=== PATIENT | female | born 1985 | race Caucasian/White ===

== ENCOUNTER → 2019-02-14 | Outpatient (CLI) | payer BC ==
--- NOTE | 2019-02-14 15:18 | CARD ---
MR#: [id number] Date of Study: 02/14/2019 Ordering Physician: EMILY DOUGLAS, Referring Physician: EMILY DOUGLAS, Tech: Barbara Hammond RDCS APPROVED REPORT INDICATION Chest Pain Reason : Patient complained of shortness of breath PROCEDURE The patient underwent an Exercise Stress Test using the Dick Protocol. Blood pressure, heart rate, a nd EKG were monitored. An Echocardiogram was performed by exhaust emissions automotive technician in four stages in quad fashion. At peak stress four se lected images were obtained and placed side by side with resting images for comparison. STRESS ECHO FINDINGS The resting Echocardiogram showed normal left ventricular systolic contractility with an estimated Ej ection Fraction of about 60 %. The Resting Echocardiogram showed normal augmentation of myocardial wall segments using a 16 segment model. The Stress Echocardiogram showed normal augmentation of myocardial wall segments using a 16 segment m eliud. The Stress Echocardiogram left ventricular systolic contractility has an estimated Ejection Fraction of about 70%. Test Type: Exercise Stress Nurse/Tech: Tone EUBANKS Test Indications: CP Cardiac History and Allergies: See EMR Medications: See EMR Medical History: See EMR Resting ECG: SR Resting Heart Rate: 61 bpm Resting Blood Pressure: 142/76mmHg Pretest Chest Pain: No chest pain Nurse/Tech Notes Lungs CTA. Heart tones regular. Consent: The procedure was explained to the patient in lay terms. Informed consent was witnessed. Donis eout was entered into [employer]. History and Stress Test performed by Yamel Douglass R.N. Stress Symptoms No chest pain or symptoms. POST EXERCISE Reason for Termination: Reached target heart rate Target HR: Yes Max HR: 178 bpm 96% of Maximum Predicted HR: 186 bpm Exercise duration: 9:00 min:sec, 3 Stage Exercise capacity: 10.1METs Max Blood Pressure: 164/80mmHg Blood Pressure response to exercise: Normal blood pressure response during stress. Heart Rate response to exercise: WNL Chest Pain: No. Arrhythmia: No. ST Change: No. STRESS ECG Stress EKG shows no significant changes. Preliminary Notification Critical Value: No <Conclusion> Good exercise capacity with 10.1 Mets achieved. Normal BP/HR response. No ischemic EKG findings. Normal resting and stress EF. Normal wall motion at peak stress. Low risk study Signed by : Emily Douglas, Electronically Approved : 02/14/2019 15:18:11
--- NOTE | 2019-02-14 15:31 | CARD ---
MR#: [id number] Date of Study: 02/14/2019 Ordering Physician: EMILY WALTERS, Referring Physician: EMILY WALTERS, Tech: Barbara Hammond [facility] APPROVED REPORT EXAM: Two-dimensional and M-mode echocardiogram with Doppler and color Doppler. Other Information Quality : AverageHR: 54bpm Rhythm : Bradycardia INDICATION Chest Pain 2D DIMENSIONS RVDd3.1 (2.9-3.5cm)Left Atrium(2D)3.8 (1.6-4.0cm) IVSd0.9 (0.7-1.1cm)Aortic Root(2D)3.0 (2.0-3.7cm) LVDd5.3 (3.9-5.9cm)LVOT Diameter2.0 (1.8-2.4cm) PWd0.7 (0.7-1.1cm)LVDs3.0 (2.5-4.0cm) FS (%) 42.9 %SV101.0 ml LVEF(%)70.0 (>50%) M-Mode DIMENSIONS Left Atrium(MM)3.71 (2.5-4.0cm)Aortic Root3.28 (2.2-3.7cm) Aortic Valve AoV Peak Adithya.160.3cm/sAoV VTI34.9cm AO Peak GR.10.3mmHgLVOT Peak Adithya.107.0cm/s AO Mean GR.6mmHgAVA (VMAX)2.02cm2 ISAÍAS (VTI)2.00cm2 Mitral Valve MV E Aslfvzix029.3cm/sMV DECEL [id number] MV A Bxfctqie80.4cm/sE/A Ratio1.5 MV A [id number] Pulmonary Valve PV Peak Svxibndv070.7cm/s Tricuspid Valve TR P. Necgmijk992at/sRAP DCCUNFGF2lcVp TR Peak Gr.82biHbRKZZ39yzKg Pulmonary Vein S1 Hfvcrvpm37.2cm/sD2 Fzrbsfna28.5cm/s PVa [id number] LEFT VENTRICLE The left ventricle is normal size. There is normal left ventricular wall thickness. The left ventricu lar systolic function is normal and the ejection fraction is within normal range. The Ejection Fracti on is 60-65%. There is normal LV segmental wall motion. The left ventricular diastolic function and f illing is normal for age. RIGHT VENTRICLE The right ventricle is normal size. There is normal right ventricular wall thickness. The right ventr icular systolic function is normal. ATRIA The left atrium size is normal. The right atrium size is normal. The interatrial septum is intact wit h no evidence for an atrial septal defect or patent foramen ovale as noted on 2-D or Doppler imaging. AORTIC VALVE The aortic valve is normal in structure and function. The aortic valve is trileaflet. Doppler and Col or Flow revealed no significant aortic regurgitation. There is no significant aortic valvular stenosi s. There is no aortic valvular vegetation. MITRAL VALVE The mitral valve is normal in structure and function. There is no evidence of mitral valve prolapse. There is no mitral valve stenosis. TRICUSPID VALVE The tricuspid valve is normal in structure and function. Doppler and Color Flow revealed trace to mil d tricuspid regurgitation. The PA pressure was estimated at 30 mmHg. There is no tricuspid valve prol apse or vegetation. PULMONIC VALVE The pulmonary valve is normal in structure and function. Doppler and Color Flow revealed trace pulmon ic valvular regurgitation. There is no pulmonic valvular stenosis. GREAT VESSELS The aortic root is normal in size. The ascending aorta is normal in size. The IVC is normal in size a nd collapses >50% with inspiration. PERICARDIAL EFFUSION There is no evidence of significant pericardial effusion. Critical Notification Critical Value: No <Conclusion> The left ventricular systolic function is normal and the ejection fraction is within normal range. Th e Ejection Fraction is 60-65%. There is normal LV segmental wall motion. Doppler and Color Flow revealed trace to mild tricuspid regurgitation. The PA pressure was estimated at 30 mmHg. Signed by : Emily Walters, Electronically Approved : 02/14/2019 15:31:15
== END | disposition home or self-care (01) ==
LOC: ECHO 11:56
PROVIDERS: ATTEND Internal Medicine Cardiovascular Disease
DX: I07.1 Rheumatic tricuspid insufficiency (principal)
CPT/HCPCS: 93017; 93306; 93350

== ENCOUNTER → 2019-02-14 | Outpatient (CLI) | payer SELFPAY ==
--- NOTE | 2019-02-14 12:08 | KCIC ---
CT CALCIUM SCORING dated 02/14/2019 11:00 AM Clinical Indication: Calcium screening. Technical factors: Computed tomography of the heart was performed with ECG gating, suspended respiration and without the administration of contrast material. Post processing was performed on the 3-D computer workstation using diastolic phase images to measure the amount of coronary vascular calcium. Scoring was aquired using the Agatston Method. One or more of the following individualized dose reduction techniques were utilized for this examination: 1. Automated exposure control 2. Adjustment of the mA and/or kV according to patient size 3. Use of iterative reconstruction technique Results: Thorax: Heart size within normal limits. No pericardial effusion. Mild ectasia of the ascending thoracic aorta measuring 3.7 cm transverse. Imaged portions of the mediastinum and pulmonary parenchyma otherwise unremarkable Coronary arteries: Calcium is absent. Total Agaston calcium score equals 0. Coronary vascular calcium is not detected with this exam. This does not absolutely rule out the presence of atherosclerotic plaque, including unstable plaque, but does imply a very low likelihood of significant luminal obstruction. A negative test may be consistent with a low risk of cardiovascular event in the next 2 to 5 years. Conclusions: Normal study, no coronary artery calcium identified. Recommendations: Healthy lifestyle choices including eating appropriately and exercise are encouraged. Additional supporting information concerning the findings and recommendation contained within this report can be found in the consensus statements on coronary vascular calcium published by the [place] [employer] and [place] [employer] 5 Conference (Circulation 1996; 94: 3843-8162; J Am King Cardiol 2000; 36: 326-340 and Circulation 2000; 101: 111-116). Electronically signed by: Blade Broussard MD (02/14/2019 12:04 PM) [facility]
== END | disposition home or self-care (01) ==
LOC: KCIC CT 10:46
PROVIDERS: ATTEND Internal Medicine Cardiovascular Disease
DX: Z13.6 Encounter for screening for cardiovascular disorders (principal); R07.9 Chest pain, unspecified; I77.810 Thoracic aortic ectasia
CPT/HCPCS: 75571